=== PATIENT | female | born 1935 | race Caucasian/White ===

== ENCOUNTER 2020-09-26 16:34 | Inpatient (IN) | payer OTHER, SELFPAY ==
[~2020-09-26] VITALS: Ht 160 cm; Wt 78.5 kg
[~2020-09-26 16:34] MED LIST: ASPI-1393 PO; ATEN50TA PO; BIOT5TAB PO; CALC-823 PO; CYAN250014 PO; GLIM1TAB PO; LOSA100T3 PO; MAGN400T10 PO; METR60GE4 TP; OMEP-268 PO; PYRI-6 PO; [UNRECOGNIZED DRUG - OTHER] PO
[2020-09-26 16:39] VITALS: BP_SYST 189
[2020-09-26] MEDS ORDERED: ACETAMINOPHEN 325 MG TABLET PO ONE (16:45)
[2020-09-26] MEDS ORDERED: NACL 0.9% 1,000 ML IV ONE (16:45)
--- NOTE | 2020-09-26 17:17 | NUR ---
PLACED IN BED 3
[2020-09-26 17:37] LABS: BILIRUBIN,URINE NEGATIVE (NEGATIVE); BLOOD, URINE 1+ (NEGATIVE); CLARITY/URINE CLEAR (CLEAR); COLOR,URINE YELLOW (YELLOW); GLUCOSE,URINE NEGATIVE (NEGATIVE); KETONES,URINE 1+ (NEGATIVE); LEUKOCYTE ESTERASE ,URINE NEGATIVE (NEGATIVE); NITRITE, URINE NEGATIVE (NEGATIVE); PROTEIN URINE 1+ (NEGATIVE); UROBILINOGEN,URINE 0.2 (0.2-1.0)
[2020-09-26 17:52] LABS: ANION GAP 10 (5-15); BACTERIA,URINE FEW /HPF (None Seen); BASOPHILS % (AUTO) 0.6 % (0.0-2.0); CALCIUM 8.7 mg/dL (8.4-11.0); CHLORIDE 103 mmol/L (98-107); CREATININE 1.27 mg/dL (0.55-1.30); EOSINOPHILS # (AUTO) 0.1 K/uL (0.0-0.4); GLUCOSE 97 mg/dL (70-99); HEMATOCRIT 38.8 % (36-48); LYMPHOCYTES # (AUTO) 0.9 K/uL (1.0-5.5); LYMPHOCYTES % (AUTO) 17.3 % (20.5-51.5); MEAN CORPUSCULAR HEMOGLOBIN 33 pg (27-31); MEAN CORPUSCULAR HGB CONC 34 % (32-36); MEAN CORPUSCULAR VOLUME 98 fL (79.0-98.0); MONOCYTES # (AUTO) 0.9 K/uL (0.0-1.0); MONOCYTES % (AUTO) 17.5 % (1.7-9.3); MUCUS,URINE None Seen /LPF (None Seen); NEUTROPHILS # (AUTO) 3.2 K/uL (1.8-7.7); NEUTROPHILS % (AUTO) 63.6 % (40.0-70.0); PLATELET COUNT (AUTO) 143 K/uL (130-430); POTASSIUM 3.4 mmol/L (3.5-5.1); RED BLOOD CELL COUNT(AUTO) 3.97 MIL/uL (4.2-6.2); RED CELL DISTRIBUTION WIDTH 14.2 % (9.0-15.0); SODIUM SERUM 139 mmol/L (136-145); UREA NITROGEN, BLOOD 13 mg/dL (8-21); WBC,URINE 0-3 /HPF (0-3); WHITE BLOOD COUNT (AUTO) 5.1 K/uL (4.8-10.8)
[2020-09-26 17:53] LABS: INR 1.1 (0.8-1.2)
[2020-09-26 17:57] LABS: ALANINE AMINOTRANSFERASE 22 U/L (12-78); ALBUMIN 3.5 g/dL (3.4-4.8); ASPARTATE AMINOTRANSFERASE 24 U/L (10-37); LIPASE 67 U/L (73-393); TOTAL BILIRUBIN 0.8 mg/dL (0.0-1.0)
--- NOTE | 2020-09-26 18:00 | NUR ---
RECEIVED AND IN ROOM, PT CALM , ALERT, RESP UNLABORED, NO DISTRESS, CLEAR MENTATION AND SPEECH, SKIN WARM AND DRY.
[2020-09-26] MEDS ORDERED: PIPERACILLIN/TAZO 3.375 GM in NS 50 ML IV ONE (18:15)
[2020-09-26] MEDS ORDERED: PIPERACILLIN/TAZOBACTAM 3.375 GM/VIAL (ZOSYN) IV ONE (18:37)
--- NOTE | 2020-09-26 18:52 | NUR ---
ZOSYN CURRENTLY INFUSING PER MD ORDER
--- NOTE | 2020-09-26 19:05 | NUR ---
CALM, ALERT, RESP UNLABORED, SKIN WARM AND DRY. COMMUNICATES CLEARLY IN FULL COMPLETE SENTNECES. DENIES CP/SOB
--- NOTE | 2020-09-26 19:10 | NUR ---
Per patient reported, Hx A-Fib and HTN, last year hospitalized -Dx Sepsis and UTI
[2020-09-26] MEDS ORDERED: ACETAMINOPHEN 325 MG TABLET PO PRN (21:30)
[2020-09-26] MEDS ORDERED: ALBUTEROL SULFATE 0.083% 2.5 MG/3 ML VIAL.NEB INH PRN (21:30)
[2020-09-26] MEDS ORDERED: INSULIN REGULAR, HUMAN 100 UNITS/ML, 10 ML VIAL (humuLIN R) SUBCUT PRN (21:45)
[2020-09-26] MEDS: NACL 0.9% 1,000 ML IV SCH (21:54)
--- NOTE | 2020-09-26 21:54 | NUR ---
Change IV fluide as order.
[2020-09-26 22:27] VITALS: BP_SYST 158
--- NOTE | 2020-09-26 22:36 | NUR ---
Patient resting quietly. No acute distress noted. Vital signs within normal range.
--- NOTE | 2020-09-27 00:14 | NUR ---
Changed a hospital bed, bed sheet, new grown and socks.
--- NOTE | 2020-09-27 01:51 | NUR ---
Provided bed mcneil for patient.
--- NOTE | 2020-09-27 01:55 | NUR ---
Collected urine and sent to lab as order for urine culture.
--- NOTE | 2020-09-27 03:34 | NUR ---
Patient resting quietly. No acute distress noted. denies SOB or chest pain.
--- NOTE | 2020-09-27 04:59 | NUR ---
Blood for labwork drawn from massage operator. Patient tolerated well.
[2020-09-27 05:41] LABS: BASOPHILS % (AUTO) 0.4 % (0.0-2.0); EOSINOPHILS % (AUTO) 0.5 % (0.0-4.0); HEMATOCRIT 38.1 % (36-48); HEMOGLOBIN 12.5 g/dL (12.0-16.0); LYMPHOCYTES # (AUTO) 1.1 K/uL (1.0-5.5); LYMPHOCYTES % (AUTO) 19.7 % (20.5-51.5); MEAN CORPUSCULAR HEMOGLOBIN 32 pg (27-31); MEAN CORPUSCULAR HGB CONC 33 % (32-36); MEAN CORPUSCULAR VOLUME 98 fL (79.0-98.0); MONOCYTES # (AUTO) 0.9 K/uL (0.0-1.0); MONOCYTES % (AUTO) 17.1 % (1.7-9.3); NEUTROPHILS # (AUTO) 3.4 K/uL (1.8-7.7); NEUTROPHILS % (AUTO) 62.3 % (40.0-70.0); PLATELET COUNT (AUTO) 132 K/uL (130-430); RED CELL DISTRIBUTION WIDTH 14.3 % (9.0-15.0); WHITE BLOOD COUNT (AUTO) 5.4 K/uL (4.8-10.8)
[2020-09-27 05:52] LABS: ALANINE AMINOTRANSFERASE 21 U/L (12-78); ALBUMIN 3.2 g/dL (3.4-4.8); ANION GAP 8 (5-15); ASPARTATE AMINOTRANSFERASE 26 U/L (10-37); CALCIUM 8.3 mg/dL (8.4-11.0); CHLORIDE 104 mmol/L (98-107); CREATININE 0.98 mg/dL (0.55-1.30); GLUCOSE 85 mg/dL (70-99); POTASSIUM 3.5 mmol/L (3.5-5.1); SODIUM SERUM 139 mmol/L (136-145); TOTAL BILIRUBIN 0.8 mg/dL (0.0-1.0); UREA NITROGEN, BLOOD 11 mg/dL (8-21)
--- NOTE | 2020-09-27 06:40 | NUR ---
BS 82.
--- NOTE | 2020-09-27 07:15 | NUR ---
Care of patient endorsed to CASSI Napier.
--- NOTE | 2020-09-27 08:53 | NUR ---
PT CONTINUES TO REST COMFORTABLY IN BED. AWAITING ROOM TO BE TRANSFERRED TO THE FLOOR.
[2020-09-27] MEDS: LOSARTAN POTASSIUM 50 MG TABLET (COZAAR) PO SCH (09:38)
[2020-09-27] MEDS: MAGNESIUM OXIDE 400 MG TABLET PO SCH (09:39)
[2020-09-27] MEDS: ASPIRIN 81 MG TABLET(ECOTRIN) PO SCH (09:39)
[2020-09-27] MEDS: ATENOLOL 50 MG TABLET (TENORMIN) PO SCH (09:40)
[2020-09-27] MEDS: GLIMEPIRIDE 2 MG TABLET PO SCH (09:45)
--- NOTE | 2020-09-27 09:48 | NUR ---
PT GIVEN ALL HER MORNING MEDICATIONS, AND RN WILL TAKE PT TO THE TELEMETRY FLOOR VERY SOON.
--- NOTE | 2020-09-27 10:00 | NUR ---
ADMISSION NOTE: Received patient from ER via gurney. Patient admitted with diagnosis of Sepsis . Patient is awake, alert, oriented X 4. Patient oriented to hospital room, call light, toileting, pain management and safety-teach back done. Patient informed that Jessica will be her nurse and that their room number is 132C. Personal belongings checked and Belongings List documented. Call light within reach.
--- NOTE | 2020-09-27 10:09 | NUR ---
PT TAKEN TO THE FLOOR ROOM 134 A . REPORT TO CONSTANTINE. PT STABLE.
--- NOTE | 2020-09-27 10:10 | NUR ---
INITIAL NOTE: RECEIVED PATIENT FROM ER NURSE ANKUSH. PATIENT IS AWAKE AND ALERT x4 LAYING DOWN IN BED. PATIENT IS TOLERATING OXYGEN ON ROOM AIR WITH NO SIGNS OF DISTRESS OR SHORTNESS OF BREATH NOTED. IV SITE IS PATENT WITH NO SIGNS OF INFILTRATION NOTED AND RUNNING FLUIDS ORDERED. PATIENT DENIES ANY PAIN AT THE MOMENT. PATIENT IN STABLE CONDITION. SAFETY, FALL, AND ASPIRATION PRECAUTIONS ARE IN PLACE. BED LOCKED IN LOWEST POSITION WITH CALL LIGHT IN REACH. WILL CONTINUE TO MONITOR PATIENT FOR ANY CHANGES.
[2020-09-27 10:18] VITALS: BP_SYST 138
[2020-09-27 10:20] VITALS: BP_SYST 138
[2020-09-27] MEDS: NACL 0.9% 1,000 ML IV SCH ×2 (11:28→17:30)
--- NOTE | 2020-09-27 12:00 | NUR ---
RN ROUNDS: PATIENT IS AWAKE AND ALERT x4 LAYING DOWN IN BED. PATIENT IS TOLERATING OXYGEN ON ROOM AIR WITH NO SIGNS OF DISTRESS OR SHORTNESS OF BREATH NOTED. PATIENT DENIES ANY PAIN AT THE MOMENT. PATIENT WAS CLEANED, CHANGED AND REPOSITIONED. PATIENT TOLERATED IT WELL. PATIENT IN STABLE CONDITION. WILL CONTINUE TO MONITOR PATIENT FOR ANY CHANGES.
--- NOTE | 2020-09-27 12:38 | NUR ---
CONSULTATION PAGED/CALLED Reason for Consultation: [] FEVERS Person Who was Notified: [] ARABELLA Consulting Physician: [] DR RACHEL OBREGON Supervisor [employer]: [] ID Ordering Physician: [] DR PARKER
[2020-09-27 12:56] VITALS: BP_SYST 138
--- NOTE | 2020-09-27 14:30 | NUR ---
Opening Notes Received report from CASSI Rose for continuation of care. Transferred patient from room 132A to 118B. Pt is alert and oriented x4. No resp distress noted. Breathing is even and unlabored. Patient c/o pain upon urination but denies generalized body pain. Pt wants to rest for now. All needs met. Safety and fall precautions in place. Call light within reach. Bed in lowest position, alarm on, locked. Will continue to monitor.
--- NOTE | 2020-09-27 14:30 | NUR ---
TRANSFER OF CARE: PATIENT TRANSFERRED TO ROOM 118B DUE TO PATIENT BEING COVID PUI NOW. REPORT GIVEN TO CASSI PEREZ. PATIENT IN STABLE CONDITION.
[2020-09-27 16:00] VITALS: BP_SYST 124; BP_SYST 140
[2020-09-27] MEDS: PIPERACILLIN/TAZO 3.375/DEX-IS 50 ML IV ONE ×2 (17:00→17:45)
--- NOTE | 2020-09-27 17:30 | NUR ---
Blood Sugar Patients BS was noted at 70 mg/dL. Patient was given 2 cups of apple juice and educated to eat dinner. Patient aware and agreed. Patient is alert and oriented x4, no distress noted. Will continue to monitor.
--- NOTE | 2020-09-27 18:45 | NUR ---
Closing Notes Patient is laying in bed, alert and oriented x4. No resp distress noted. Breathing is even and unlabored. IV site on right hand, 22 gauge intact at this time. NS @ 100 cc/hr, infusing well. Patient is eating dinner and talking to her daughter on the phone. All needs met. Safety and fall precautions in place. Call light within reach. Bed in lowest position, alarm on, locked. Will continue to monitor.
--- NOTE | 2020-09-27 19:30 | NUR ---
Opening notes Received report. Patient is resting in bed, no signs of distress noted. Breathing even and unlabored on room air. Patient assisted to bathroom to have BM. Patient steady gait, minimal assistance required. Patient back in bed, patient done with dinner. No other needs. Call light with the patient. Safety precautions in place.
[2020-09-27 20:00] VITALS: BP_SYST 164
--- NOTE | 2020-09-27 20:49 | NUR ---
Spoke to son Yunier. Updated on patient condition and plan of care. Son verbalized understanding. All questions and concerns addressed.
[2020-09-27] MEDS: PIPERACILLIN/TAZO 3.375/DEX-IS 50 ML IV SCH (23:14)
[2020-09-27] MEDS ORDERED: GLUCOSE (DEXTROSE) ORAL GEL -Adults PO PRN (23:30)
[2020-09-27] MEDS ORDERED: hydrALAZINE HCL 20 MG/ML VIAL IVP ONE (23:30)
[2020-09-27] MEDS ORDERED: hydrALAZINE HCL 20 MG/ML VIAL ONE (23:48)
[2020-09-28 00:02] VITALS: BP_SYST 190
--- NOTE | 2020-09-28 00:30 | NUR ---
Blood sugar Initial Accucheck 56. Patient asymptomatic. Given 2 cups of apple juice with sugar and sandwich. 15 mins after, accucheck 58. More snacks provided. MD notified about low blood sugars and high blood pressure of 190/107. Orders given. Glutose-15 gel and Hydralazine given. Accucheck 136 and BP 154/84 after administration of prn medications. No other needs. Call light with the patient. Safety precautions in place.
[2020-09-28 01:00] VITALS: BP_SYST 154
--- NOTE | 2020-09-28 02:30 | NUR ---
RN rounds Patient is ambulated to bathroom to have BM. Loose stool noted, almost liquid-like. Per patient, pt has been having issues with diarrhea for 3 months. Patient back in bed, no signs of distress noted. Breathing even and unlabored on room air. No needs. Call light with the patient. Safety precautions in place.
[2020-09-28] MEDS: NACL 0.9% 1,000 ML IV SCH (03:30)
--- NOTE | 2020-09-28 04:37 | NUR ---
RN rounds Patient is resting in bed, no signs of distress noted. Breathing even and unlabored on room air. IV patent and intact, no sign of infiltration noted. No needs at this time. call light with the patient. Safety precautions in place.
[2020-09-28] MEDS: PIPERACILLIN/TAZO 3.375/DEX-IS 50 ML IV SCH ×4 (06:30→17:58)
--- NOTE | 2020-09-28 07:26 | NUR ---
Closing notes Patient is resting in bed, no signs of distress noted. Breathing even and unlabored on room air. Patient ambulated to bathroom. Had BM. Linen change done, per patient, she is incontinent when sleeping. All needs met throughout the shift. Call light with the patient. Safety precautions in place. Will endorse care to day shift RN. Addendum: 09/28/20 at 0731 by Kyara Echols RN Accucheck 61. Patient given apple juice. Recheck 87.
[2020-09-28 08:00] VITALS: BP_SYST 169
--- NOTE | 2020-09-28 08:30 | NUR ---
Opening Notes Patient is awake, alert and oriented x4. No resp distress noted. Breathing is even and unlabored. Pt reports minimal gen body pain, 2/10, does not want pain meds at this time. IV site on right hand, 22 gauge intact at this time. Changed IVF to D5 1/2 NS @ 100 cc/hr, infusing well at this time. Pt ate 100% of breakfast. Pt is ambulatory, steady gait. Pt reports having diarrhea, will notify MD Hutson. Pt denies and NV, cough or abnormal bleeding. All needs met. Safety and fall precautions in place. Bed in lowest position, alarm on, locked. Will continue to monitor.
[2020-09-28] MEDS: GLIMEPIRIDE 2 MG TABLET PO SCH (09:00)
[2020-09-28] MEDS: D5/0.45 NS 1,000 ML IV SCH (09:00)
[2020-09-28] MEDS: MAGNESIUM OXIDE 400 MG TABLET PO SCH (09:00)
[2020-09-28] MEDS: ATENOLOL 50 MG TABLET (TENORMIN) PO SCH (09:00)
[2020-09-28] MEDS: LOSARTAN POTASSIUM 50 MG TABLET (COZAAR) PO SCH (10:29)
[2020-09-28] MEDS: ASPIRIN 81 MG TABLET(ECOTRIN) PO SCH (10:30)
--- NOTE | 2020-09-28 10:34 | NUR ---
Notes Patient is laying in bed and watching TV. No resp distress noted. Breathing is even and unlabored. Denies any pain at this time. Will continue to monitor. Addendum: 09/28/20 at 1855 by Elvia Parks RN HELD GLIMEPIRIDE 1 mg to prevent low blood sugar
--- NOTE | 2020-09-28 11:30 | NUR ---
Blood Sugar Patients BS was noted at 89 mg/dL. Patient was educated to eat lunch. Patient aware and agreed. Patient is alert and oriented x4, no distress noted. Will continue to monitor.
[2020-09-28 12:00] VITALS: BP_SYST 147
--- NOTE | 2020-09-28 12:00 | NUR ---
Notes Patient is laying in bed, resting at this time and watching TV. No resp distress noted. NO signs of pain. Will continue to monitor.
--- NOTE | 2020-09-28 14:33 | NUR ---
Notes Patient is awake, alert and oriented x4. No resp distress noted. Denies any pain. Nurse assisted pt to restroom. Patients gait steady. Patient c/o intermittent SOB during ambulation. All needs met at this time. Will continue to monitor.
--- NOTE | 2020-09-28 15:01 | NUR ---
COVID POSITIVE Addendum: 09/28/20 at 1602 by Elvia Parks RN s/w daughter-in law Dharmesh, family wants to follow up with Dr. Hutson and Dr. Rocha. Daughter in law informed nurse that patient was around entire family during Thanksgiving Addendum: 09/28/20 at 1809 by Elvia Parks RN s/w Lisandro Yuiner, wants to speak with Dr. Poe. S/w Dr. Poe,will call son tomorrow 09/29/2020
[2020-09-28 16:00] VITALS: BP_SYST 145
--- NOTE | 2020-09-28 16:00 | NUR ---
Notes/IV leaking Patient is laying in bed and watching TV at this time. No resp distress noted. IV site is leaking. Turned off fluids for now. Will attempt to restart IV access later in shift. Will continue to monitor.
--- NOTE | 2020-09-28 17:30 | NUR ---
Blood Sugar Patients BS was noted at 78 mg/dL. Patient was educated to eat dinner. Patient aware and agreed. Patient is alert and oriented x4, no distress noted. Will continue to monitor.
--- NOTE | 2020-09-28 18:07 | NUR ---
Closing Notes/New IV ACCESS Patient is awake, alert and oriented x4. No resp distress noted. Breathing is even and unlabored. Pt denies any pain at this time. IV site was restarted on left hand, 22 gauge intact at this time. D5 1/2 NS @ 100 cc/hr, infusing well at this time. Pt is eating dinner at this time. All needs met at this time. Safety and fall precautions in place. Bed in lowest position, locked. Will continue to monitor. Addendum: 09/28/20 at 2134 by Elvia Parks RN IV access on left hand is flushing when IV site is taut back, difficult to infuse ATMiki Goldberg, will endorse to next nurse for possibility of other IV access start
--- NOTE | 2020-09-28 19:30 | NUR ---
Opening notes Received report. Patient is resting in bed, no signs of distress noted. Breathing even and unlabored on room air. IV in place. Flushes well, but IV machine alarms. Will try to insert new IV. No other needs. Call light with the patient. Safety precautions in place.
[2020-09-28 20:00] VITALS: BP_SYST 155
--- NOTE | 2020-09-28 22:01 | NUR ---
Accucheck/IV insertion Accucheck 75. No insulin per sliding scale. Snacks provided to patient. Encouraged to eat. IV infiltrated. New IV inserted into left forearm 22 gauge. Resumed ordered IVF. Patient incontinent at this time. Hygiene care provided. New pad placed. No other needs. Call light with the patient. Safety precautions in place.
[2020-09-29] MEDS: D5/0.45 NS 1,000 ML IV SCH (00:09)
[2020-09-29] MEDS: PIPERACILLIN/TAZO 3.375/DEX-IS 50 ML IV SCH ×3 (00:09→12:28)
[2020-09-29 01:30] VITALS: BP_SYST 177
[2020-09-29] MEDS ORDERED: hydrALAZINE HCL 20 MG/ML VIAL IVP ONE (01:30)
--- NOTE | 2020-09-29 01:50 | NUR ---
Elevated BP Patient BP 177/[address] Young of elevated BP. Orders received for one time order of Hydralazine. Read back and verified orders.
--- NOTE | 2020-09-29 04:15 | NUR ---
RN rounds Patient resting in bed, no signs of distress noted. Breathing even and unlabored on room air. IVF infusing well. VSS. No needs. Call light with the patient. Safety precautions in place.
--- NOTE | 2020-09-29 06:59 | NUR ---
Closing notes Patient is resting in bed, no signs of distress noted. Breathing even and unlabored on room air. Complete linen change done. Hygiene care done. IV patent and intact, infusing fluids. Accucheck 90. Encouraged patient to eat breakfast. All needs met throughout the shift. Call light with the patient. Safety precautions in place. Will endorse care to day shift RN.
--- NOTE | 2020-09-29 08:00 | NUR ---
am notes received in bed. a/x3. denies any pain or sob vitals stable no s/s of res distress noted. res even and unlabored. ambulated to bed side commode with steady gait. c/o of weakness in legs. safety /fall precautions in place.needs attended. will continue to monitor
[2020-09-29] MEDS: GLIMEPIRIDE 2 MG TABLET PO SCH (09:00)
[2020-09-29 09:01] VITALS: BP_SYST 162
[2020-09-29] MEDS: LOSARTAN POTASSIUM 50 MG TABLET (COZAAR) PO SCH (09:15)
[2020-09-29] MEDS: MAGNESIUM OXIDE 400 MG TABLET PO SCH (09:16)
[2020-09-29] MEDS: ASPIRIN 81 MG TABLET(ECOTRIN) PO SCH (09:16)
[2020-09-29] MEDS: ATENOLOL 50 MG TABLET (TENORMIN) PO SCH (09:16)
[2020-09-29 10:59] VITALS: BP_SYST 162
--- NOTE | 2020-09-29 12:00 | NUR ---
ROUNDS PT STABLE NOT IN ACUTE DISTRESS KEPT.AMBULATED WITH PT IN ROOM. DENIES ANY PAIN OR SOB. NEEDS ATTENDED. WILL CONTINUE TO MONITOR
[2020-09-29] MEDS ORDERED: LEVO250T58 PO (12:08)
[2020-09-29] MEDS ORDERED: APIX2.5T PO (12:09)
[2020-09-29 12:13] VITALS: BP_SYST 141
--- NOTE | 2020-09-29 14:16 | NUR ---
Dietitian Recommendations *Continue [facility] diet. *Recommend: add Glucerna BID. *Recommend: add immune boosters (VIT C, VIT D, Zinc) Please see Nutritional Assessment for details. ASHISH, RD
[2020-09-29 16:00] VITALS: BP_SYST 158
--- NOTE | 2020-09-29 16:15 | NUR ---
ROUNDS PT STABLE NOT IN ACUTE DISTRESS KEPT.VITALS STABLE. DENIES ANY PAIN OR SOB. 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 PT'S DAUGHTER WILL STAY WITH PT FOR HELP.
[2020-09-29 16:48] VITALS: BP_SYST 146; BP_SYST 158
--- NOTE | 2020-09-29 19:00 | NUR ---
D/C Patient Patient given medication reconciliation form and D/C instructions. Exit Care provided. Patient verbalized understanding. MD discussed with patient the results and treatment provided. Ambulatory with steady gait for discharge to home. Patient in stable condition, ID band removed. IV catheter removed, intact and dressing applied, no active bleeding. . Patient educated on pain management. All belongings sent with patient.PT discharged to home with son in private car.
== END 2020-09-29 19:00 | disposition home or self-care (01) | DRG 177 ==
LOC: SED 16:34 → SMU 19:48 → STU 23:58
PROVIDERS: ADMIT Internal Medicine Hospice and Palliative Medicine; ATTEND Internal Medicine Hospice and Palliative Medicine
DX: U07.1 COVID-19 (principal); J12.89 Other viral pneumonia; N30.00 Acute cystitis without hematuria; R65.10 Systemic inflammatory response syndrome (SIRS) of non-infectious origin without acute organ dysfunction; I48.91 Unspecified atrial fibrillation; I10 Essential (primary) hypertension; E11.9 Type 2 diabetes mellitus without complications; E87.6 Hypokalemia; Z82.49 Family history of ischemic heart disease and other diseases of the circulatory system; Z87.440 Personal history of urinary (tract) infections; Z88.5 Allergy status to narcotic agent; Z79.82 Long term (current) use of aspirin; Z79.899 Other long term (current) drug therapy; Z79.01 Long term (current) use of anticoagulants; Z79.84 Long term (current) use of oral hypoglycemic drugs
CPT/HCPCS: 36415; 71045; 76376; 80053; 81000-TC; 82962; 83605; 83690-TC; 84484; 85025; 85610-TC; 85730-TC; 87040-TC; 87086; 93005; 94640; 96361; 96365; 99285; G0378; J0360; J1815; J2543; U0003

== ENCOUNTER 2020-10-01 10:49 | Inpatient (IN) | payer OTHER, SELFPAY ==
[~2020-10-01] VITALS: Ht 160 cm; Wt 83.0 kg
[~2020-10-01 10:49] MED LIST changes: +APIX2.5T PO; +LEVO250T58 PO
[2020-10-01 10:50] VITALS: BP_SYST 130
[2020-10-01 12:00] LABS: BASOPHILS % (AUTO) 0.4 % (0.0-2.0); EOSINOPHILS % (AUTO) 0.4 % (0.0-4.0); HEMATOCRIT 38.6 % (36-48); HEMOGLOBIN 13.1 g/dL (12.0-16.0); LYMPHOCYTES # (AUTO) 0.7 K/uL (1.0-5.5); LYMPHOCYTES % (AUTO) 19.4 % (20.5-51.5); MEAN CORPUSCULAR HEMOGLOBIN 33 pg (27-31); MEAN CORPUSCULAR HGB CONC 34 % (32-36); MEAN CORPUSCULAR VOLUME 96 fL (79.0-98.0); MONOCYTES # (AUTO) 0.7 K/uL (0.0-1.0); MONOCYTES % (AUTO) 17.2 % (1.7-9.3); NEUTROPHILS # (AUTO) 2.4 K/uL (1.8-7.7); NEUTROPHILS % (AUTO) 62.6 % (40.0-70.0); PLATELET COUNT (AUTO) 138 K/uL (130-430); WHITE BLOOD COUNT (AUTO) 3.9 K/uL (4.8-10.8)
[2020-10-01 12:22] LABS: ANION GAP 12 (5-15); CALCIUM 8.7 mg/dL (8.4-11.0); CHLORIDE 99 mmol/L (98-107); CREATININE 1.62 mg/dL (0.55-1.30); GLUCOSE 109 mg/dL (70-99); POTASSIUM 3.7 mmol/L (3.5-5.1); SODIUM SERUM 135 mmol/L (136-145); UREA NITROGEN, BLOOD 26 mg/dL (8-21)
[2020-10-01 12:28] LABS: INR 1.1 (0.8-1.2); PROTHROMBIN TIME 11.1 SECS (9.5-12.5)
[2020-10-01 12:33] LABS: ALANINE AMINOTRANSFERASE 23 U/L (12-78); ASPARTATE AMINOTRANSFERASE 34 U/L (10-37); LACTATE DEHYDROGENASE 247 U/L (81-234); TOTAL BILIRUBIN 0.6 mg/dL (0.0-1.0)
[2020-10-01] MEDS ORDERED: NACL 0.9% 1,000 ML IV ONE (13:30)
[2020-10-01 13:47] LABS: BILIRUBIN,URINE NEGATIVE (NEGATIVE); CLARITY/URINE CLEAR (CLEAR); COLOR,URINE YELLOW (YELLOW); GLUCOSE,URINE NEGATIVE (NEGATIVE); KETONES,URINE NEGATIVE (NEGATIVE); LEUKOCYTE ESTERASE ,URINE NEGATIVE (NEGATIVE); NITRITE, URINE NEGATIVE (NEGATIVE); PROTEIN URINE 1+ (NEGATIVE); UROBILINOGEN,URINE 0.2 (0.2-1.0)
[2020-10-01 13:52] LABS: BLOOD, URINE TRACE (NEGATIVE)
[2020-10-01 13:57] LABS: BACTERIA,URINE MODERATE /HPF (None Seen); MUCUS,URINE 1+ /LPF (None Seen)
[2020-10-01] MEDS ORDERED: cefTRIAXone 1 GM in D5W 50 ML IV ONE (14:00)
[2020-10-01] MEDS: NACL 0.9% 1,000 ML IV SCH (14:43)
[2020-10-01] MEDS ORDERED: cefTRIAXone 1 GM VIAL ONE (14:44)
[2020-10-01 16:58] VITALS: BP_SYST 112
[2020-10-01] MEDS ORDERED: NACL 0.9% 1,000 ML IV SCH (17:15)
[2020-10-01] MEDS ORDERED: DEXTROSE 50% JECT 50 ML DISP.SYRIN IVP PRN (17:15)
[2020-10-01] MEDS: HEPARIN SODIUM,PORCINE 5,000 UNITS/ML VIAL SUBCUT SCH ×2 (18:25→21:42)
[2020-10-01 21:53] VITALS: BP_SYST 130
[2020-10-02 00:30] VITALS: BP_SYST 129
[2020-10-02] MEDS: HEPARIN SODIUM,PORCINE 5,000 UNITS/ML VIAL SUBCUT SCH ×3 (06:17→21:30)
[2020-10-02] MEDS: NACL 0.9% 1,000 ML IV SCH (06:18)
[2020-10-02] MEDS: GLIMEPIRIDE 2 MG TABLET PO SCH (08:00)
[2020-10-02 09:00] VITALS: BP_SYST 155
[2020-10-02] MEDS: ASPIRIN 81 MG TABLET(ECOTRIN) PO SCH (09:02)
[2020-10-02] MEDS: ATENOLOL 50 MG TABLET (TENORMIN) PO SCH (09:02)
[2020-10-02 09:13] LABS: BASOPHILS % (AUTO) 0.3 % (0.0-2.0); EOSINOPHILS % (AUTO) 0.1 % (0.0-4.0); HEMOGLOBIN 12.3 g/dL (12.0-16.0); LYMPHOCYTES % (AUTO) 33.2 % (20.5-51.5); MEAN CORPUSCULAR HEMOGLOBIN 32 pg (27-31); MEAN CORPUSCULAR HGB CONC 33 % (32-36); MEAN CORPUSCULAR VOLUME 96 fL (79.0-98.0); MONOCYTES # (AUTO) 0.6 K/uL (0.0-1.0); NEUTROPHILS # (AUTO) 1.4 K/uL (1.8-7.7); NEUTROPHILS % (AUTO) 46.4 % (40.0-70.0); PLATELET COUNT (AUTO) 130 K/uL (130-430); RED BLOOD CELL COUNT(AUTO) 3.85 MIL/uL (4.2-6.2)
[2020-10-02] MEDS: D5NS 1,000 ML IV SCH (10:42)
[2020-10-02 12:00] VITALS: BP_SYST 128
[2020-10-02 12:40] LABS: ALANINE AMINOTRANSFERASE 26 U/L (12-78); ALBUMIN 2.7 g/dL (3.4-4.8); ANION GAP 12 (5-15); ASPARTATE AMINOTRANSFERASE 37 U/L (10-37); CALCIUM 7.8 mg/dL (8.4-11.0); CHLORIDE 104 mmol/L (98-107); CREATININE 1.27 mg/dL (0.55-1.30); GLUCOSE 86 mg/dL (70-99); POTASSIUM 3.5 mmol/L (3.5-5.1); SODIUM SERUM 136 mmol/L (136-145); TOTAL BILIRUBIN 0.3 mg/dL (0.0-1.0); UREA NITROGEN, BLOOD 22 mg/dL (8-21)
[2020-10-02] MEDS ORDERED: CHOLECALCIFEROL (VITAMIN D3) 5,000 UNIT TABLET PO ONE (16:00)
[2020-10-02] MEDS ORDERED: ASCORBIC ACID 500 MG TABLET PO ONE (16:00)
[2020-10-02 16:30] VITALS: BP_SYST 158
[2020-10-02] MEDS: cefTRIAXone 1 GM in D5W 50 ML IV SCH (16:40)
[2020-10-02 21:34] VITALS: BP_SYST 153
[2020-10-03] VITALS: BP_SYST 153
[2020-10-03] MEDS: D5NS 1,000 ML IV SCH ×2 (03:37→20:32)
[2020-10-03] MEDS: HEPARIN SODIUM,PORCINE 5,000 UNITS/ML VIAL SUBCUT SCH ×3 (06:28→21:19)
[2020-10-03 08:00] VITALS: BP_SYST 152
[2020-10-03] MEDS: GLIMEPIRIDE 2 MG TABLET PO SCH (08:00)
[2020-10-03] MEDS: CHOLECALCIFEROL (VITAMIN D3) 5,000 UNIT TABLET PO SCH (09:14)
[2020-10-03] MEDS: ATENOLOL 50 MG TABLET (TENORMIN) PO SCH (09:14)
[2020-10-03] MEDS: ASCORBIC ACID 500 MG TABLET PO SCH (09:14)
[2020-10-03] MEDS: ASPIRIN 81 MG TABLET(ECOTRIN) PO SCH (09:14)
[2020-10-03 12:00] VITALS: BP_SYST 145
[2020-10-03 16:00] VITALS: BP_SYST 158
[2020-10-03] MEDS: cefTRIAXone 1 GM in D5W 50 ML IV SCH (16:18)
[2020-10-03] MEDS ORDERED: VANCOMYCIN HCL 1 GM/NS PREMIX 250 ML IV ONE (18:00)
[2020-10-03] MEDS ORDERED: LOPERAMIDE HCL 2 MG CAPSULE PO PRN (18:00)
[2020-10-03 19:00] VITALS: BP_SYST 144
[2020-10-03 20:00] VITALS: BP_SYST 154
[2020-10-03] MEDS ORDERED: MUPIROCIN 1 GM OIN.PF.APP NS SCH (21:00)
[2020-10-04] VITALS: BP_SYST 142
[2020-10-04] MEDS: HEPARIN SODIUM,PORCINE 5,000 UNITS/ML VIAL SUBCUT SCH ×3 (06:30→22:44)
[2020-10-04 08:00] VITALS: BP_SYST 154
[2020-10-04] MEDS: GLIMEPIRIDE 2 MG TABLET PO SCH (08:00)
[2020-10-04] MEDS: MUPIROCIN 2% TOPICAL OINTMENT 22 GM NS SCH ×2 (09:00→21:00)
[2020-10-04] MEDS: ATENOLOL 50 MG TABLET (TENORMIN) PO SCH (09:25)
[2020-10-04] MEDS: ASCORBIC ACID 500 MG TABLET PO SCH (09:28)
[2020-10-04] MEDS: CHOLECALCIFEROL (VITAMIN D3) 5,000 UNIT TABLET PO SCH (09:28)
[2020-10-04] MEDS: ASPIRIN 81 MG TABLET(ECOTRIN) PO SCH (09:28)
[2020-10-04 12:00] VITALS: BP_SYST 141
[2020-10-04] MEDS: D5NS 1,000 ML IV SCH (12:08)
[2020-10-04 16:00] VITALS: BP_SYST 147
[2020-10-04] MEDS: cefTRIAXone 1 GM in D5W 50 ML IV SCH (16:18)
[2020-10-04 22:40] VITALS: BP_SYST 144
[2020-10-05] MEDS: INSULIN REGULAR, HUMAN 100 UNITS/ML, 10 ML VIAL (humuLIN R) SUBCUT PRN ×2 (00:12→05:20)
[2020-10-05 00:32] VITALS: BP_SYST 149
[2020-10-05 00:51] LABS: BILIRUBIN,URINE NEGATIVE (NEGATIVE); CLARITY/URINE CLEAR (CLEAR); COLOR,URINE YELLOW (YELLOW); GLUCOSE,URINE NEGATIVE (NEGATIVE); KETONES,URINE NEGATIVE (NEGATIVE); LEUKOCYTE ESTERASE ,URINE NEGATIVE (NEGATIVE); NITRITE, URINE NEGATIVE (NEGATIVE); PROTEIN URINE 1+ (NEGATIVE); UROBILINOGEN,URINE 0.2 (0.2-1.0)
[2020-10-05 00:54] LABS: BACTERIA,URINE FEW /HPF (None Seen); BLOOD, URINE TRACE (NEGATIVE); WBC,URINE 0-3 /HPF (0-3)
[2020-10-05] MEDS: D5NS 1,000 ML IV SCH ×2 (04:55→12:40)
[2020-10-05] MEDS: HEPARIN SODIUM,PORCINE 5,000 UNITS/ML VIAL SUBCUT SCH ×3 (05:04→22:00)
[2020-10-05 07:45] VITALS: BP_SYST 117
[2020-10-05 09:01] LABS: ALANINE AMINOTRANSFERASE 19 U/L (12-78); ANION GAP 9 (5-15); ASPARTATE AMINOTRANSFERASE 34 U/L (10-37); CALCIUM 7.7 mg/dL (8.4-11.0); CHLORIDE 107 mmol/L (98-107); CREATININE 1.01 mg/dL (0.55-1.30); GLUCOSE 104 mg/dL (70-99); POTASSIUM 3.3 mmol/L (3.5-5.1); SODIUM SERUM 137 mmol/L (136-145); TOTAL BILIRUBIN 0.5 mg/dL (0.0-1.0); UREA NITROGEN, BLOOD 14 mg/dL (8-21)
[2020-10-05 09:02] LABS: BASOPHILS # (AUTO) 0.1 K/uL (0.0-0.2); BASOPHILS % (AUTO) 1.7 % (0.0-2.0); EOSINOPHILS % (AUTO) 0.3 % (0.0-4.0); HEMATOCRIT 35.5 % (36-48); HEMOGLOBIN 12.1 g/dL (12.0-16.0); LYMPHOCYTES # (AUTO) 1.1 K/uL (1.0-5.5); LYMPHOCYTES % (AUTO) 32.6 % (20.5-51.5); MEAN CORPUSCULAR HEMOGLOBIN 32 pg (27-31); MEAN CORPUSCULAR HGB CONC 34 % (32-36); MEAN CORPUSCULAR VOLUME 95 fL (79.0-98.0); MONOCYTES # (AUTO) 0.5 K/uL (0.0-1.0); MONOCYTES % (AUTO) 14.5 % (1.7-9.3); NEUTROPHILS # (AUTO) 1.8 K/uL (1.8-7.7); NEUTROPHILS % (AUTO) 50.9 % (40.0-70.0); PLATELET COUNT (AUTO) 140 K/uL (130-430); RED BLOOD CELL COUNT(AUTO) 3.73 MIL/uL (4.2-6.2); RED CELL DISTRIBUTION WIDTH 14.1 % (9.0-15.0); WHITE BLOOD COUNT (AUTO) 3.5 K/uL (4.8-10.8)
[2020-10-05] MEDS: CHOLECALCIFEROL (VITAMIN D3) 5,000 UNIT TABLET PO SCH (09:31)
[2020-10-05] MEDS: ASCORBIC ACID 500 MG TABLET PO SCH (09:31)
[2020-10-05] MEDS: GLIMEPIRIDE 2 MG TABLET PO SCH (09:31)
[2020-10-05] MEDS: ASPIRIN 81 MG TABLET(ECOTRIN) PO SCH (09:31)
[2020-10-05] MEDS: MUPIROCIN 2% TOPICAL OINTMENT 22 GM NS SCH ×2 (09:32→21:00)
[2020-10-05] MEDS: ATENOLOL 50 MG TABLET (TENORMIN) PO SCH (09:32)
[2020-10-05 12:00] VITALS: BP_SYST 132
[2020-10-05 16:00] VITALS: BP_SYST 145
[2020-10-05] MEDS ORDERED: POTASSIUM CHLORIDE 20 MEQ TAB.PRT.SR PO ONE (19:15)
[2020-10-05 20:00] VITALS: BP_SYST 158
[2020-10-05] MEDS ORDERED: CEFEPIME 1 GM/VIAL (MAXIPIME) ONE (23:09)
[2020-10-05] MEDS: ACETAMINOPHEN 325 MG TABLET PO PRN (23:20)
[2020-10-05] MEDS: CEFEPIME 1 GM in D5W 50 ML IV SCH (23:20)
[2020-10-06] VITALS: BP_SYST 148
[2020-10-06] MEDS: HEPARIN SODIUM,PORCINE 5,000 UNITS/ML VIAL SUBCUT SCH ×3 (06:54→21:00)
[2020-10-06 07:27] LABS: BASOPHILS % (AUTO) 0.4 % (0.0-2.0); EOSINOPHILS # (AUTO) 0.1 K/uL (0.0-0.4); HEMOGLOBIN 12.9 g/dL (12.0-16.0); LYMPHOCYTES # (AUTO) 1.3 K/uL (1.0-5.5); LYMPHOCYTES % (AUTO) 32.6 % (20.5-51.5); MEAN CORPUSCULAR HEMOGLOBIN 32 pg (27-31); MEAN CORPUSCULAR HGB CONC 34 % (32-36); MEAN CORPUSCULAR VOLUME 95 fL (79.0-98.0); MONOCYTES # (AUTO) 0.5 K/uL (0.0-1.0); NEUTROPHILS # (AUTO) 2.1 K/uL (1.8-7.7); PLATELET COUNT (AUTO) 149 K/uL (130-430); RED BLOOD CELL COUNT(AUTO) 3.99 MIL/uL (4.2-6.2); RED CELL DISTRIBUTION WIDTH 13.9 % (9.0-15.0); WHITE BLOOD COUNT (AUTO) 4.1 K/uL (4.8-10.8)
[2020-10-06 07:57] LABS: ALANINE AMINOTRANSFERASE 24 U/L (12-78); ALBUMIN 2.1 g/dL (3.4-4.8); ANION GAP 7 (5-15); ASPARTATE AMINOTRANSFERASE 32 U/L (10-37); CALCIUM 8.3 mg/dL (8.4-11.0); CHLORIDE 110 mmol/L (98-107); CREATININE 0.99 mg/dL (0.55-1.30); GLUCOSE 97 mg/dL (70-99); POTASSIUM 3.9 mmol/L (3.5-5.1); SODIUM SERUM 139 mmol/L (136-145); TOTAL BILIRUBIN 0.5 mg/dL (0.0-1.0); UREA NITROGEN, BLOOD 19 mg/dL (8-21)
[2020-10-06] MEDS: CHOLECALCIFEROL (VITAMIN D3) 5,000 UNIT TABLET PO SCH (08:05)
[2020-10-06] MEDS: ASCORBIC ACID 500 MG TABLET PO SCH (08:05)
[2020-10-06] MEDS: GLIMEPIRIDE 2 MG TABLET PO SCH (08:05)
[2020-10-06] MEDS: ASPIRIN 81 MG TABLET(ECOTRIN) PO SCH (08:05)
[2020-10-06] MEDS: ATENOLOL 50 MG TABLET (TENORMIN) PO SCH (08:11)
[2020-10-06] MEDS: MUPIROCIN 2% TOPICAL OINTMENT 22 GM NS SCH ×4 (08:13→21:00)
[2020-10-06] MEDS: CEFEPIME 1 GM in D5W 50 ML IV SCH ×2 (08:24→20:55)
[2020-10-06] MEDS: D5NS 1,000 ML IV SCH (08:26)
[2020-10-06 08:39] VITALS: BP_SYST 167
[2020-10-06] MEDS: ACETAMINOPHEN 325 MG TABLET PO PRN ×2 (09:59→15:53)
[2020-10-06] MEDS ORDERED: ONDANSETRON HCL 4 MG/2 ML VIAL IVP PRN (10:45)
[2020-10-06] MEDS ORDERED: ASPIRIN 325 MG TABLET PO ONE (10:45)
[2020-10-06] MEDS ORDERED: METOCLOPRAMIDE HCL 10 MG/2 ML VIAL IVP PRN (10:45)
[2020-10-06] MEDS ORDERED: MORPHINE 4 MG/ML INJ. SYRINGE IVP PRN (10:45)
[2020-10-06] MEDS ORDERED: MORPHINE 2 MG/ML INJ. SYRINGE IVP PRN (10:45)
[2020-10-06] MEDS: INSULIN REGULAR, HUMAN 100 UNITS/ML, 10 ML VIAL (humuLIN R) SUBCUT PRN ×2 (11:06→17:47)
[2020-10-06 12:15] VITALS: BP_SYST 172
[2020-10-06] MEDS: DEXAMETHASONE SOD PHOSPHATE 10 MG/ML VIAL IVP SCH (12:21)
[2020-10-06 16:08] VITALS: BP_SYST 140
[2020-10-06 20:00] VITALS: BP_SYST 117
[2020-10-07 00:07] VITALS: BP_SYST 151
[2020-10-07] MEDS: INSULIN REGULAR, HUMAN 100 UNITS/ML, 10 ML VIAL (humuLIN R) SUBCUT PRN ×2 (00:07→05:40)
[2020-10-07] MEDS: D5NS 1,000 ML IV SCH (00:10)
[2020-10-07 05:00] VITALS: BP_SYST 115
[2020-10-07] MEDS: HEPARIN SODIUM,PORCINE 5,000 UNITS/ML VIAL SUBCUT SCH ×3 (05:43→21:10)
[2020-10-07] MEDS: ACETAMINOPHEN 325 MG TABLET PO PRN ×2 (05:50→21:10)
[2020-10-07 08:00] VITALS: BP_SYST 135
[2020-10-07] MEDS ORDERED: ASPIRIN 81 MG TABLET(ECOTRIN) ONE (08:30)
[2020-10-07] MEDS: ATENOLOL 50 MG TABLET (TENORMIN) PO SCH (09:09)
[2020-10-07] MEDS: GLIMEPIRIDE 2 MG TABLET PO SCH (09:09)
[2020-10-07] MEDS: ASCORBIC ACID 500 MG TABLET PO SCH (09:10)
[2020-10-07] MEDS: CHOLECALCIFEROL (VITAMIN D3) 5,000 UNIT TABLET PO SCH (09:11)
[2020-10-07] MEDS: CEFEPIME 1 GM in D5W 50 ML IV SCH ×2 (09:13→21:00)
[2020-10-07] MEDS: MUPIROCIN 2% TOPICAL OINTMENT 22 GM NS SCH ×2 (09:26→20:55)
[2020-10-07] MEDS: ASPIRIN 81 MG TABLET(ECOTRIN) PO SCH (09:30)
[2020-10-07] MEDS: DEXAMETHASONE SOD PHOSPHATE 10 MG/ML VIAL IVP SCH (13:00)
[2020-10-07] MEDS ORDERED: METOPROLOL SUCCINATE 50 MG TAB.SR.24H (TOPROL XL) PO SCH (13:15)
[2020-10-07] MEDS ORDERED: OMEPRAZOLE Non-Formulary 20 MG CAPSULE.DR PO SCH (13:15)
[2020-10-07] MEDS ORDERED: PANTOPRAZOLE SODIUM 40 MG TAB PO ONE (14:45)
[2020-10-07 16:00] VITALS: BP_SYST 124
[2020-10-07 20:05] VITALS: BP_SYST 126
[2020-10-07] MEDS: APIXABAN 2.5 MG TABLET PO SCH (21:00)
[2020-10-07] MEDS ORDERED: APIXABAN 2.5 MG TABLET PO SCH (21:00)
[2020-10-08 00:05] VITALS: BP_SYST 140
[2020-10-08] MEDS: D5NS 1,000 ML IV SCH ×2 (00:30→18:12)
[2020-10-08] MEDS: INSULIN REGULAR, HUMAN 100 UNITS/ML, 10 ML VIAL (humuLIN R) SUBCUT PRN ×2 (00:36→06:00)
[2020-10-08 04:05] VITALS: BP_SYST 114
[2020-10-08] MEDS: HEPARIN SODIUM,PORCINE 5,000 UNITS/ML VIAL SUBCUT SCH ×3 (05:55→21:56)
[2020-10-08] MEDS: ASCORBIC ACID 500 MG TABLET PO SCH (10:04)
[2020-10-08] MEDS: PANTOPRAZOLE SODIUM 40 MG TAB PO SCH (10:04)
[2020-10-08] MEDS: ATENOLOL 50 MG TABLET (TENORMIN) PO SCH (10:05)
[2020-10-08] MEDS: GLIMEPIRIDE 2 MG TABLET PO SCH (10:05)
[2020-10-08] MEDS: CHOLECALCIFEROL (VITAMIN D3) 5,000 UNIT TABLET PO SCH (10:05)
[2020-10-08] MEDS: CEFEPIME 1 GM in D5W 50 ML IV SCH ×2 (10:06→21:54)
[2020-10-08] MEDS: APIXABAN 2.5 MG TABLET PO SCH ×2 (10:35→21:00)
[2020-10-08] MEDS: ASPIRIN 81 MG TABLET(ECOTRIN) PO SCH (10:36)
[2020-10-08] MEDS: MUPIROCIN 2% TOPICAL OINTMENT 22 GM NS SCH (12:30)
[2020-10-08] MEDS ORDERED: DEXAMETHASONE SOD PHOSPHATE 4 MG/ML VIAL ONE (12:52)
[2020-10-08] MEDS: DEXAMETHASONE SOD PHOSPHATE 10 MG/ML VIAL IVP SCH (12:53)
[2020-10-08 13:24] VITALS: BP_SYST 155
[2020-10-08 16:00] VITALS: BP_SYST 129
[2020-10-08 20:00] VITALS: BP_SYST 141
[2020-10-08 23:24] LABS: HEMATOCRIT 35.5 % (36-48); HEMOGLOBIN 11.7 g/dL (12.0-16.0); MEAN CORPUSCULAR HEMOGLOBIN 33 pg (27-31); MEAN CORPUSCULAR HGB CONC 33 % (32-36); MEAN CORPUSCULAR VOLUME 99 fL (79.0-98.0); PLATELET COUNT (AUTO) 219 K/uL (130-430); RED BLOOD CELL COUNT(AUTO) 3.59 MIL/uL (4.2-6.2); RED CELL DISTRIBUTION WIDTH 14.9 % (9.0-15.0); WHITE BLOOD COUNT (AUTO) 12.9 K/uL (4.8-10.8)
[2020-10-08 23:48] LABS: ANION GAP 8 (5-15); CALCIUM 8.3 mg/dL (8.4-11.0); CHLORIDE 113 mmol/L (98-107); CREATININE 1.87 mg/dL (0.55-1.30); GLUCOSE 161 mg/dL (70-99); POTASSIUM 5.7 mmol/L (3.5-5.1); SODIUM SERUM 142 mmol/L (136-145); UREA NITROGEN, BLOOD 45 mg/dL (8-21)
[2020-10-08 23:53] LABS: ALANINE AMINOTRANSFERASE 41 U/L (12-78); ALBUMIN 2.4 g/dL (3.4-4.8); ASPARTATE AMINOTRANSFERASE 40 U/L (10-37); TOTAL BILIRUBIN 0.4 mg/dL (0.0-1.0)
[2020-10-09] VITALS: BP_SYST 149
[2020-10-09 00:19] LABS: BAND % (MANUAL) 4 % (0-6); BASOPHILS % (MANUAL) 0 % (0-2); EOSINOPHILS % (MANUAL) 0 % (0-7); LYMPHOCYTES % (MANUAL) 4 % (20-46); MONOCYTES % (MANUAL) 3 % (0-11)
[2020-10-09] MEDS: HEPARIN SODIUM,PORCINE 5,000 UNITS/ML VIAL SUBCUT SCH ×3 (05:43→22:00)
[2020-10-09 08:02] LABS: ALANINE AMINOTRANSFERASE 46 U/L (12-78); ALBUMIN 2.5 g/dL (3.4-4.8); ANION GAP 13 (5-15); ASPARTATE AMINOTRANSFERASE 38 U/L (10-37); CALCIUM 8.4 mg/dL (8.4-11.0); CHLORIDE 112 mmol/L (98-107); CREATININE 1.79 mg/dL (0.55-1.30); GLUCOSE 143 mg/dL (70-99); POTASSIUM 5.7 mmol/L (3.5-5.1); SODIUM SERUM 141 mmol/L (136-145); TOTAL BILIRUBIN 0.6 mg/dL (0.0-1.0); UREA NITROGEN, BLOOD 48 mg/dL (8-21)
[2020-10-09 08:27] LABS: BASOPHILS # (AUTO) 0.1 K/uL (0.0-0.2); BASOPHILS % (AUTO) 0.5 % (0.0-2.0); HEMATOCRIT 40.2 % (36-48); HEMOGLOBIN 12.9 g/dL (12.0-16.0); LYMPHOCYTES # (AUTO) 0.7 K/uL (1.0-5.5); LYMPHOCYTES % (AUTO) 6.3 % (20.5-51.5); MEAN CORPUSCULAR HEMOGLOBIN 32 pg (27-31); MEAN CORPUSCULAR HGB CONC 32 % (32-36); MEAN CORPUSCULAR VOLUME 100 fL (79.0-98.0); MONOCYTES # (AUTO) 1.2 K/uL (0.0-1.0); NEUTROPHILS # (AUTO) 9.2 K/uL (1.8-7.7); NEUTROPHILS % (AUTO) 82.2 % (40.0-70.0); PLATELET COUNT (AUTO) 179 K/uL (130-430); RED BLOOD CELL COUNT(AUTO) 4.01 MIL/uL (4.2-6.2); WHITE BLOOD COUNT (AUTO) 11.2 K/uL (4.8-10.8)
[2020-10-09 08:30] VITALS: BP_SYST 135
[2020-10-09] MEDS ORDERED: SODIUM POLYSTYRENE SULFONATE 15 GM/60 ML UDBTL PO ONE (09:00)
[2020-10-09] MEDS: CEFEPIME 1 GM in D5W 50 ML IV SCH ×2 (09:31→21:56)
[2020-10-09] MEDS: PANTOPRAZOLE SODIUM 40 MG TAB PO SCH (09:31)
[2020-10-09] MEDS: ASPIRIN 81 MG TABLET(ECOTRIN) PO SCH (09:31)
[2020-10-09] MEDS: ATENOLOL 50 MG TABLET (TENORMIN) PO SCH (09:34)
[2020-10-09] MEDS: GLIMEPIRIDE 2 MG TABLET PO SCH (09:35)
[2020-10-09] MEDS: CHOLECALCIFEROL (VITAMIN D3) 5,000 UNIT TABLET PO SCH (09:36)
[2020-10-09] MEDS: APIXABAN 2.5 MG TABLET PO SCH ×2 (09:36→21:57)
[2020-10-09] MEDS: ASCORBIC ACID 500 MG TABLET PO SCH (09:39)
[2020-10-09] MEDS: D5NS 1,000 ML IV SCH (09:43)
[2020-10-09] MEDS ORDERED: SODIUM POLYSTYRENE SULFONATE 15 GM/60 ML UDBTL RC ONE (10:30)
[2020-10-09 12:41] VITALS: BP_SYST 128
[2020-10-09] MEDS: DEXAMETHASONE SOD PHOSPHATE 10 MG/ML VIAL IVP SCH (13:03)
[2020-10-09 15:57] VITALS: BP_SYST 136
[2020-10-09 20:00] VITALS: BP_SYST 131
[2020-10-09] MEDS: INSULIN REGULAR, HUMAN 100 UNITS/ML, 10 ML VIAL (humuLIN R) SUBCUT PRN (23:55)
[2020-10-10] VITALS: BP_SYST 132
[2020-10-10 00:17] LABS: INR 1.1 (0.8-1.2); PROTHROMBIN TIME 11.6 SECS (9.5-12.5)
[2020-10-10] MEDS: D5NS 1,000 ML IV SCH ×2 (01:35→09:58)
[2020-10-10] MEDS: INSULIN REGULAR, HUMAN 100 UNITS/ML, 10 ML VIAL (humuLIN R) SUBCUT PRN (05:33)
[2020-10-10] MEDS: HEPARIN SODIUM,PORCINE 5,000 UNITS/ML VIAL SUBCUT SCH ×3 (05:35→23:13)
[2020-10-10 08:00] VITALS: BP_SYST 124
[2020-10-10 08:00] LABS: BASOPHILS % (AUTO) 0.3 % (0.0-2.0); EOSINOPHILS # (AUTO) 0.1 K/uL (0.0-0.4); EOSINOPHILS % (AUTO) 0.5 % (0.0-4.0); HEMATOCRIT 32.3 % (36-48); HEMOGLOBIN 10.4 g/dL (12.0-16.0); LYMPHOCYTES # (AUTO) 0.8 K/uL (1.0-5.5); LYMPHOCYTES % (AUTO) 6.7 % (20.5-51.5); MEAN CORPUSCULAR HEMOGLOBIN 32 pg (27-31); MEAN CORPUSCULAR HGB CONC 32 % (32-36); MEAN CORPUSCULAR VOLUME 99 fL (79.0-98.0); MONOCYTES # (AUTO) 1.3 K/uL (0.0-1.0); NEUTROPHILS # (AUTO) 9.5 K/uL (1.8-7.7); PLATELET COUNT (AUTO) 172 K/uL (130-430); RED BLOOD CELL COUNT(AUTO) 3.25 MIL/uL (4.2-6.2); RED CELL DISTRIBUTION WIDTH 14.8 % (9.0-15.0); WHITE BLOOD COUNT (AUTO) 11.6 K/uL (4.8-10.8)
[2020-10-10 08:47] LABS: NEUTROPHILS % (AUTO) 81.5 % (40.0-70.0)
[2020-10-10] MEDS: ASCORBIC ACID 500 MG TABLET PO SCH ×2 (09:00→09:33)
[2020-10-10] MEDS: PANTOPRAZOLE SODIUM 40 MG TAB PO SCH ×2 (09:00→09:34)
[2020-10-10] MEDS: ASPIRIN 81 MG TABLET(ECOTRIN) PO SCH ×2 (09:00→09:35)
[2020-10-10] MEDS: ATENOLOL 50 MG TABLET (TENORMIN) PO SCH ×2 (09:00→09:34)
[2020-10-10] MEDS: APIXABAN 2.5 MG TABLET PO SCH ×3 (09:00→21:00)
[2020-10-10] MEDS: CHOLECALCIFEROL (VITAMIN D3) 5,000 UNIT TABLET PO SCH ×2 (09:00→09:33)
[2020-10-10 09:35] LABS: ALANINE AMINOTRANSFERASE 51 U/L (12-78); ALBUMIN 2.5 g/dL (3.4-4.8); ANION GAP 13 (5-15); ASPARTATE AMINOTRANSFERASE 33 U/L (10-37); CALCIUM 8.5 mg/dL (8.4-11.0); CHLORIDE 114 mmol/L (98-107); CREATININE 2.06 mg/dL (0.55-1.30); GLUCOSE 179 mg/dL (70-99); POTASSIUM 4.8 mmol/L (3.5-5.1); SODIUM SERUM 145 mmol/L (136-145); TOTAL BILIRUBIN 0.4 mg/dL (0.0-1.0); UREA NITROGEN, BLOOD 61 mg/dL (8-21)
[2020-10-10] MEDS: GLIMEPIRIDE 2 MG TABLET PO SCH ×2 (09:35→10:00)
[2020-10-10] MEDS: CEFEPIME 1 GM in D5W 50 ML IV SCH ×2 (09:35→21:00)
[2020-10-10 12:00] VITALS: BP_SYST 130
[2020-10-10] MEDS: DEXAMETHASONE SOD PHOSPHATE 10 MG/ML VIAL IVP SCH (12:00)
[2020-10-10 16:00] VITALS: BP_SYST 138
[2020-10-10 20:00] VITALS: BP_SYST 158
[2020-10-10] MEDS: FUROSEMIDE 20 MG/2 ML VIAL IVP SCH (21:00)
[2020-10-10] MEDS ORDERED: FUROSEMIDE 20 MG TABLET PO SCH (21:00)
[2020-10-11] VITALS: BP_SYST 149
[2020-10-11] MEDS ORDERED: LORazepam 2 MG/ML VIAL IVP PRN (03:45)
[2020-10-11] MEDS: HEPARIN SODIUM,PORCINE 5,000 UNITS/ML VIAL SUBCUT SCH ×2 (06:33→14:53)
[2020-10-11 08:00] VITALS: BP_SYST 111
[2020-10-11] MEDS: GLIMEPIRIDE 2 MG TABLET PO SCH (08:00)
[2020-10-11] MEDS: CEFEPIME 1 GM in D5W 50 ML IV SCH (08:04)
[2020-10-11] MEDS: FUROSEMIDE 20 MG/2 ML VIAL IVP SCH (08:50)
[2020-10-11] MEDS: CHOLECALCIFEROL (VITAMIN D3) 5,000 UNIT TABLET PO SCH (09:00)
[2020-10-11] MEDS: ATENOLOL 50 MG TABLET (TENORMIN) PO SCH (09:00)
[2020-10-11] MEDS: ASCORBIC ACID 500 MG TABLET PO SCH (09:00)
[2020-10-11] MEDS: PANTOPRAZOLE SODIUM 40 MG TAB PO SCH (09:00)
[2020-10-11] MEDS: APIXABAN 2.5 MG TABLET PO SCH (09:00)
[2020-10-11] MEDS: ASPIRIN 81 MG TABLET(ECOTRIN) PO SCH (09:00)
[2020-10-11 12:00] VITALS: BP_SYST 117
[2020-10-11] MEDS ORDERED: METOPROLOL TARTRATE 5 MG/5 ML VIAL IVP PRN (12:00)
[2020-10-11] MEDS: DEXAMETHASONE SOD PHOSPHATE 10 MG/ML VIAL IVP SCH (12:06)
[2020-10-11 16:10] VITALS: BP_SYST 142
== END 2020-10-11 17:20 | disposition expired | DRG 177 ==
LOC: SED 10:49 → SMU 14:06 → OBSVTOIN 14:06 → SMU 15:59 → STU 10-06 10:05
PROVIDERS: ADMIT Internal Medicine Hospice and Palliative Medicine; ATTEND Internal Medicine
DX: U07.1 COVID-19 (principal); J12.89 Other viral pneumonia; J96.01 Acute respiratory failure with hypoxia; G93.41 Metabolic encephalopathy; N17.0 Acute kidney failure with tubular necrosis; I48.20 Chronic atrial fibrillation, unspecified; N39.0 Urinary tract infection, site not specified; E87.5 Hyperkalemia; Z66 Do not resuscitate; I46.9 Cardiac arrest, cause unspecified; E03.9 Hypothyroidism, unspecified; E86.0 Dehydration; R62.7 Adult failure to thrive; E11.9 Type 2 diabetes mellitus without complications; R53.81 Other malaise; I10 Essential (primary) hypertension; Z79.01 Long term (current) use of anticoagulants; Z79.899 Other long term (current) drug therapy; Z86.15 Personal history of latent tuberculosis infection; Z88.6 Allergy status to analgesic agent; Z79.2 Long term (current) use of antibiotics; Z79.82 Long term (current) use of aspirin; Z68.32 Body mass index [BMI] 32.0-32.9, adult; Z22.322 Carrier or suspected carrier of Methicillin resistant Staphylococcus aureus
CPT/HCPCS: 36415; 36600; 71045; 80053; 81000-TC; 82550-TC; 82728; 82803-TC; 82962; 83036; 83605; 83615-TC; 83880; 84484; 85007; 85025; 85027; 85379; 85384-TC; 85610-TC; 85730-TC; 86140; 86886; 86900; 86901; 87081; 87086; 93005; 96361; 96365; 97110-GP; 97116-GP; 97163; 97530-GP; 99285; G0378; J0692; J0696; J1100; J1644; J1815; J1940; J2060; J2270; J2405; J2765; J3370; J7060